=== PATIENT | female | born 1960 | race Caucasian/White ===

== ENCOUNTER 2019-10-09 15:39 | Emergency (ER) | payer OTHER ==
[~2019-10-09] VITALS: Ht 165.1 cm; Wt 109.8 kg
--- NOTE | 2019-10-09 15:49 | NUR ---
Dr Waters at the bedside for MSE.
--- NOTE | 2019-10-09 16:35 | NUR ---
Placed a call to [email or web address] @[phone]. [employer] #[id number], no ETA provided at this time. Pt made aware.
--- NOTE | 2019-10-09 18:59 | NUR ---
Handsoff report given to KARTHIK Gifford production supervisor off shift.
--- NOTE | 2019-10-09 19:15 | NUR ---
Patient discharged to home in stable conditon. Written and verbal after care instructions given. Patient verbalizes understanding of instructions. [facility] patient ambulated to [facility] with stable gait. all belongings with patient
[2019-10-09 19:20] VITALS: BP 124/66
== END 2019-10-09 19:15 | disposition home or self-care (01) ==
LOC: ER 15:47
DX: J22 Unspecified acute lower respiratory infection (principal); R05 Cough; J44.9 Chronic obstructive pulmonary disease, unspecified; E11.9 Type 2 diabetes mellitus without complications
CPT/HCPCS: 71045; A4663

== ENCOUNTER 2019-12-29 21:32 | Emergency (ER) | payer OTHER ==
[~2019-12-29] VITALS: Ht 165.1 cm; Wt 111.1 kg
[2019-12-29] MEDS ORDERED: BACL10TA PO (22:04)
[2019-12-29] MEDS ORDERED: LEVO100T10 PO (22:04)
[2019-12-29] MEDS ORDERED: METF-442 PO (22:04)
[2019-12-29] MEDS ORDERED: OM-31CAP7 PO (22:04)
[2019-12-29] MEDS ORDERED: PANT40TA4 PO (22:04)
[2019-12-29] MEDS ORDERED: ACET-2154 PO (22:04)
[2019-12-29] MEDS ORDERED: FLUT1DIS28 IH (22:04)
[2019-12-29] MEDS ORDERED: [UNRECOGNIZED DRUG - OTHER] (22:04)
[2019-12-29] MEDS ORDERED: CARV3.122 PO (22:04)
[2019-12-29] MEDS ORDERED: ASPI81TA31 PO (22:04)
[2019-12-29] MEDS ORDERED: DIVA125T32 PO (22:04)
[2019-12-29] MEDS ORDERED: DIVA-76 PO (22:04)
[2019-12-29] MEDS ORDERED: CITA40TA22 PO (22:04)
[2019-12-29] MEDS ORDERED: CHOL100045 PO (22:04)
[2019-12-29] MEDS ORDERED: ATOR40TA PO (22:04)
[2019-12-29] MEDS ORDERED: LACT10SO7 PO (22:04)
[2019-12-29] MEDS ORDERED: FURO-152 PO (22:04)
[2019-12-29] MEDS ORDERED: FOLI1TAB16 PO (22:04)
[2019-12-29] MEDS ORDERED: IBUP-1955 PO (22:04)
[2019-12-29] MEDS ORDERED: QUET300T2 PO (22:04)
[2019-12-29] MEDS ORDERED: LOSA100T3 PO (22:04)
[2019-12-29] MEDS ORDERED: DOCU-141 PO (22:04)
[2019-12-29] MEDS ORDERED: METH10TA PO (22:04)
[2019-12-29] MEDS ORDERED: DIVA500T2 PO (22:04)
[2019-12-29] MEDS ORDERED: HYDR50TA62 PO (22:04)
--- NOTE | 2019-12-29 22:06 | NUR ---
Patient BIB private ambulance from [facility] for c/o bilateral hip and back pain due to non witness fall today. Patient upon arrival A/Ox3, c/o genaralized pain and burning upon urination. On via N/C satting at 97%. Dr Quispe into eval patient.
[2019-12-29 22:20] LABS: *BILIRUBIN,URIN NEGATIVE (NEGATIVE); *BLOOD, URINE 2+ (NEGATIVE); *CLARITY,URINE CLOUDY (CLEAR); *COLOR,URINE YELLOW (YELLOW); *KETONES,URINE TRACE (NEGATIVE); *UROBILINOGEN,URINE 0.2 E.U./dl (NORMAL); LEUKOCYTE ESTERASE ,URINE 2+ (NEGATIVE); NITRITE, URINE NEGATIVE (NEGATIVE); PH,URINE 5.5 (5.0-8.0); UGLUCOSE NEGATIVE (NEGATIVE)
[2019-12-29 22:22] LABS: BASOPHILS # (AUTO) 0.1 K/uL (0.0-8.0); BASOPHILS % (AUTO) 1.2 % (0.0-2.0); EOSINOPHILS # (AUTO) 0.2 K/uL (0.0-0.7); EOSINOPHILS % (AUTO) 2.4 % (0.0-7.0); HEMATOCRIT 36.2 % (31.2-41.9); HEMOGLOBIN 12.5 g/dL (10.9-14.3); LYMPHOCYTES # (AUTO) 2.8 K/uL (20.0-40.0); LYMPHOCYTES % (AUTO) 30.7 % (20.5-51.5); MEAN CORPUSCULAR HEMOGLOBIN 33.2 uug (24.7-32.8); MEAN CORPUSCULAR HGB CONC 35 g/dL (32.3-35.6); MEAN CORPUSCULAR VOLUME 95.9 fL (75.5-95.3); MONOCYTES # (AUTO) 0.7 K/uL (2.0-10.0); MONOCYTES % (AUTO) 8.1 % (0.0-11.0); NEUTROPHILS # (AUTO) 5.3 K/uL (1.8-8.9); NEUTROPHILS % (AUTO) 57.6 % (38.5-71.5); PLATELET COUNT (AUTO) 200 K/uL (179-408); RED BLOOD CELL COUNT(AUTO) 3.77 MIL/uL (3.63-4.92); WHITE BLOOD COUNT (AUTO) 9.1 K/uL (3.8-11.8)
[2019-12-29 22:28] LABS: CREATININE 2.2 mg/dL (0.6-1.3); POTASSIUM 3.7 mmol/L (3.5-5.1)
[2019-12-29 22:33] LABS: BILIRUBIN,DIRECT 0.2 mg/dL (0.0-0.2); BILIRUBIN,TOTAL 0.3 mg/dL (0.2-1.0)
--- NOTE | 2019-12-29 22:35 | NUR ---
Patient out of unit for ct scan via g[facility].
[2019-12-29 22:42] LABS: BACTERIA,URINE MANY /HPF (NONE SEEN); SQUAMOUS EPITHELIAL CELL,UR MODERATE /HPF (NONE SEEN); WBC,URINE TNTC /HPF (0-3)
--- NOTE | 2019-12-29 22:46 | NUR ---
Patient back from ct scan with no distress noted.
[2019-12-29] MEDS ORDERED: CEphaleXIN 500 MG CAPSULE PO ONE (23:00)
[2019-12-29] MEDS ORDERED: CEphaleXIN 500 MG CAPSULE ONE (23:11)
--- NOTE | 2019-12-29 23:26 | NUR ---
Called [facility] to transport patient back to [facility]. ETA is 1hr with trip #[id number].
--- NOTE | 2019-12-29 23:59 | NUR ---
Gave report to [facility] unit 121. Called [facility], spoke to Rosaura and inform patient will be returning with Rx for Kelfex.
--- NOTE | 2019-12-30 00:14 | NUR ---
Patient d/c'ed via [facility] with no distress noted.
[2019-12-30 00:15] VITALS: BP 128/66
== END 2019-12-30 00:16 ==
LOC: ER 21:33
DX: N39.0 Urinary tract infection, site not specified (principal); E11.22 Type 2 diabetes mellitus with diabetic chronic kidney disease; N18.9 Chronic kidney disease, unspecified; Z79.84 Long term (current) use of oral hypoglycemic drugs; J44.9 Chronic obstructive pulmonary disease, unspecified; Z87.01 Personal history of pneumonia (recurrent); Z87.898 Personal history of other specified conditions; I51.7 Cardiomegaly
CPT/HCPCS: 36415; 70450; 71045; 83690; 85025; 87077; 87086; 93005; A4663

== ENCOUNTER 2020-01-01 19:14 | Inpatient (IN) | payer OTHER ==
[~2020-01-01] VITALS: Ht 165.1 cm; Wt 111.6 kg
[~2020-01-01 19:14] MED LIST: ACET-2154 PO; ASPI81TA31 PO; ATOR40TA PO; BACL10TA PO; CARV3.122 PO; CHOL100045 PO; CITA40TA22 PO; DIVA-76 PO; DIVA125T32 PO; DIVA500T2 PO; DOCU-141 PO; FLUT1DIS28 IH; FOLI1TAB16 PO; FURO-152 PO; HYDR50TA62 PO; IBUP-1955 PO; LACT10SO7 PO; LEVO100T10 PO; LOSA100T3 PO; METF-442 PO; METH10TA PO; OM-31CAP7 PO; PANT40TA4 PO; QUET300T2 PO; [UNRECOGNIZED DRUG - OTHER]
[2020-01-01] MEDS ORDERED: OXYC-133 PO (19:40)
[2020-01-01] MEDS ORDERED: CEPH-570 PO (19:40)
[2020-01-01 20:28] LABS: *BILIRUBIN,URIN NEGATIVE (NEGATIVE); *COLOR,URINE YELLOW (YELLOW); *KETONES,URINE NEGATIVE (NEGATIVE); *UROBILINOGEN,URINE 0.2 E.U./dl (NORMAL); LEUKOCYTE ESTERASE ,URINE 1+ (NEGATIVE); NITRITE, URINE NEGATIVE (NEGATIVE); PH,URINE 5.5 (5.0-8.0); UGLUCOSE NEGATIVE (NEGATIVE)
[2020-01-01 20:33] LABS: *BLOOD, URINE TRACE (NEGATIVE); *CLARITY,URINE HAZY (CLEAR)
[2020-01-01 20:35] LABS: BACTERIA,URINE FEW /HPF (NONE SEEN); MUCUS,URINE FEW /LPF (0-FEW); SQUAMOUS EPITHELIAL CELL,UR MODERATE /HPF (NONE SEEN)
--- NOTE | 2020-01-01 20:47 | NUR ---
Dr. Quispe speaking with Dr. Nishant Albright of [facility].
--- NOTE | 2020-01-01 20:54 | NUR ---
Pt. admitted to Med/Surg, under care of Dr. Nishant Albright . Diagnosis: UTI/Left Fibula Fracture. Belongs List completed.
[2020-01-01] MEDS ORDERED: SULFAMETH/TRIMETH 800/160 MG TABLET PO ONE (21:00)
[2020-01-01] MEDS ORDERED: IV NORMAL SALINE 1000 ML BAG IV ONE ×2 (21:00→22:45)
[2020-01-01] MEDS ORDERED: SULFAMETH/TRIMETH 800/160 MG TABLET ONE (21:19)
[2020-01-01 21:23] LABS: BASOPHILS % (AUTO) 0.6 % (0.0-2.0); EOSINOPHILS # (AUTO) 0.1 K/uL (0.0-0.7); EOSINOPHILS % (AUTO) 1.9 % (0.0-7.0); HEMATOCRIT 30.4 % (31.2-41.9); HEMOGLOBIN 10.4 g/dL (10.9-14.3); LYMPHOCYTES # (AUTO) 1.5 K/uL (20.0-40.0); LYMPHOCYTES % (AUTO) 23.2 % (20.5-51.5); MEAN CORPUSCULAR HEMOGLOBIN 33.2 uug (24.7-32.8); MEAN CORPUSCULAR HGB CONC 34 g/dL (32.3-35.6); MEAN CORPUSCULAR VOLUME 97.1 fL (75.5-95.3); MONOCYTES # (AUTO) 0.9 K/uL (2.0-10.0); MONOCYTES % (AUTO) 13.3 % (0.0-11.0); NEUTROPHILS # (AUTO) 3.9 K/uL (1.8-8.9); PLATELET COUNT (AUTO) 169 K/uL (179-408); RED BLOOD CELL COUNT(AUTO) 3.13 MIL/uL (3.63-4.92); WHITE BLOOD COUNT (AUTO) 6.4 K/uL (3.8-11.8)
[2020-01-01 21:28] LABS: POTASSIUM 4.7 mmol/L (3.5-5.1)
[2020-01-01 21:33] LABS: BILIRUBIN,DIRECT 0.1 mg/dL (0.0-0.2); BILIRUBIN,TOTAL 0.2 mg/dL (0.2-1.0); TOTAL PROTEIN, SERUM 6.1 g/dL (6.4-8.2)
[2020-01-01 22:35] VITALS: BP 125/46
--- NOTE | 2020-01-01 23:00 | NUR ---
Patient admitted at 2228 from [facility] with diagnosis of UTI/Left Fibula Fracture, transferred from ED via gurney. Patient is alert, oriented x 2-3, vital signs stable, denies any jovel or discomfort at this time. Skin is intact. Picture taken on left hip bruising, and peritoneal redness on left side. Routine admission care done. PM care done, patient is incontinent. Oriented patient to staff, room and use of room amenities/functions with verbalized understanding. Patient is under care of Dr. Nishant Albright. Physical assessment completed. Belongs List completed. Will continue to monitor.
[2020-01-01] MEDS ORDERED: CEFTRIAXONE /D5W 50ML IVPB **ER PYXIS IV ONE (23:53)
[2020-01-02] MEDS: CEFTRIAXONE 1 G in IV DEXTROSE 5% 50 ML IV SCH (00:51)
--- NOTE | 2020-01-02 02:00 | NUR ---
Administered Rocephin, no adverse affects noted. Iv site is on right forearm, 22G, intact and patent. Patients is on 2L NC saturating at 98%. Blood pressure fluctuating 70/38, 90/58, 97/64. Put patient in Trendelenburg position BP at 98/70. Patient is asymptomatic, Will continue to monitor.
[2020-01-02 04:00] VITALS: BP 108/47
--- NOTE | 2020-01-02 05:13 | NUR ---
No sudden events reported. Patient woke up startled thinking that her blood pressure was dropping and that the clock was measure her blood pressure. Patient reoriented and calm. BP 156/125, repeated 116/35. Recent vitals 108/47 no temp, saturating at 97% on 2L, no complaints and remains asymptomatic. Gave patient pudding. Patient keeps falling asleep, will follow up with history of narcolepsy.
--- NOTE | 2020-01-02 07:45 | NUR ---
Patient in bed, awake and verbally responsive. On Oxygen at 2L via nasal canula, saturating 96%. No complain of Pain or discomfort. Kpet clean and comfortable. Kept the call light within easy reach. Will continue to monitor.
[2020-01-02] MEDS ORDERED: ACETAMINOPHEN 325 MG TABLET PO PRN ×2 (08:45→10:11)
[2020-01-02] MEDS ORDERED: ADMELOG XX SCH (08:45)
[2020-01-02] MEDS ORDERED: METFORMIN HCL 500 MG TABLET PO SCH (08:45)
[2020-01-02] MEDS ORDERED: IBUPROFEN 600 MG TABLET PO PRN (08:45)
[2020-01-02] MEDS: LOSARTAN POTASSIUM 50 MG TABLET PO SCH (09:00)
[2020-01-02] MEDS: CARVEDILOL 3.125 MG TABLET PO SCH ×2 (09:00→17:00)
[2020-01-02] MEDS ORDERED: FLUTICASONE/SALMETEROL 250/50 INHALER IH SCH (09:00)
[2020-01-02] MEDS ORDERED: FUROSEMIDE 20 MG TABLET PO SCH (09:00)
[2020-01-02] MEDS ORDERED: VITAMIN D PO SCH (09:00)
[2020-01-02] MEDS ORDERED: FISH OIL PO SCH (09:00)
[2020-01-02] MEDS: DOCUSATE SODIUM 100 MG CAPSULE PO SCH (09:26)
[2020-01-02] MEDS: CHOLECALCIFEROL 1,000 UNIT TABLET PO SCH (09:26)
[2020-01-02] MEDS: FOLIC ACID 1 MG TABLET PO SCH (09:27)
[2020-01-02] MEDS: ASPIRIN 81 MG TAB.CHEW PO SCH (09:27)
[2020-01-02] MEDS: DIVALPROEX 125 MG TABLET.DR PO SCH (09:27)
[2020-01-02] MEDS: CITALOPRAM 20 MG TABLET PO SCH (09:27)
[2020-01-02] MEDS: BACLOFEN 10 MG TABLET PO SCH ×2 (09:28→16:34)
[2020-01-02] MEDS: Z GUARD REMEDY PASTE 57 GM TUBE TOP SCH ×2 (09:28→20:49)
[2020-01-02] MEDS: PANTOPRAZOLE SODIUM 40 MG TABLET.DR PO SCH (09:36)
[2020-01-02] MEDS: LEVOTHYROXINE SODIUM 100 MCG TABLET PO SCH (11:07)
[2020-01-02] MEDS: FLUTICASONE/VILANTEROL 1 EACH BLST.W.DEV INH SCH (11:25)
[2020-01-02] MEDS ORDERED: DEXTROSE 50% 50 ML DISP.SYRIN IV PRN (11:30)
[2020-01-02] MEDS: BLOOD SUGAR DIAGNOSTIC 1 EACH STRIP VI SCH ×3 (11:41→20:30)
[2020-01-02] MEDS: IV NS 1000 ML 1,000 ML IV PRN (11:48)
[2020-01-02] MEDS: INSULIN REGULAR, HUMAN 300 UNIT/3 ML VIAL SQ PRN ×2 (12:31→20:45)
[2020-01-02 13:45] VITALS: BP 118/90
[2020-01-02] MEDS: OXYCODONE/APAP 5-325 MG TABLET PO PRN ×2 (15:06→20:19)
[2020-01-02] MEDS: DIVALPROEX 250 MG TABLET.DR PO SCH (16:34)
--- NOTE | 2020-01-02 18:23 | NUR ---
Patient in bed, awake and verbally responsive. On Oxygen at 2L via nasal canula, saturating 96%. Afebrile. Pain medication Percocet 5/325mg given as ordered for Generalized Body pain. IVF infusing well on LFA, All needs attended and met. kept clean and comfortable. Will endorse to Oncoming Nurse.
--- NOTE | 2020-01-02 19:30 | NUR ---
PATIENT ALERT BUT FORGETFUL, NO SOB NO CHEST PAIN, PATIENT CONTINUE ON PAIN MANAGEMENT DUE TO FX OF LEFT FIBULA. PATIENT WAS KEPT CLEAN AND DRY AND COMFORTABLE, CONT TO MONITOR.
[2020-01-02 20:19] VITALS: BP 117/98
[2020-01-02] MEDS: hydrOXYzine HCL 25 MG TABLET PO SCH (20:48)
[2020-01-02] MEDS: DIVALPROEX 500 MG TABLET.DR PO SCH (20:48)
[2020-01-02] MEDS: ATORVASTATIN 40 MG TABLET PO SCH (20:49)
[2020-01-02] MEDS: QUETIAPINE FUMARATE 200 MG TABLET PO SCH (20:49)
[2020-01-03] MEDS: CEFTRIAXONE 1 G in IV DEXTROSE 5% 50 ML IV SCH ×2 (00:08→22:57)
[2020-01-03] MEDS: OXYCODONE/APAP 5-325 MG TABLET PO PRN ×5 (00:37→22:42)
[2020-01-03] MEDS: IV NS 1000 ML 1,000 ML IV PRN ×3 (00:37→23:40)
[2020-01-03 05:23] VITALS: BP 112/53
[2020-01-03] MEDS: PANTOPRAZOLE SODIUM 40 MG TABLET.DR PO SCH (06:21)
[2020-01-03] MEDS: LEVOTHYROXINE SODIUM 100 MCG TABLET PO SCH (06:23)
[2020-01-03] MEDS: BLOOD SUGAR DIAGNOSTIC 1 EACH STRIP VI SCH ×4 (06:23→20:31)
--- NOTE | 2020-01-03 07:30 | NUR ---
RECEIVED IN BED ASLEEP EASILY AROUSABLE ON ROUNDS ASSISTED WITH REPOSITIONING Q2H REMAIN ON IVF ORDERED WITH NO S/S OF INFILTERATION ON SITE ON O2 WITH NO SHORTNESS OF BREATH AT THIS TIME NO S/S OF HYPOGLYCEMIC REACTIONS ALL NEEDS ANTICIPATED AND SATISFIED MADE COMFORTABLE
[2020-01-03] MEDS: DIVALPROEX 125 MG TABLET.DR PO SCH (09:09)
[2020-01-03] MEDS: FOLIC ACID 1 MG TABLET PO SCH (09:09)
[2020-01-03] MEDS: BACLOFEN 10 MG TABLET PO SCH ×2 (09:09→16:53)
[2020-01-03] MEDS: DOCUSATE SODIUM 100 MG CAPSULE PO SCH (09:09)
[2020-01-03] MEDS: CHOLECALCIFEROL 1,000 UNIT TABLET PO SCH (09:09)
[2020-01-03] MEDS: CITALOPRAM 20 MG TABLET PO SCH (09:09)
[2020-01-03] MEDS: ASPIRIN 81 MG TAB.CHEW PO SCH (09:09)
[2020-01-03] MEDS: OMEGA-3 FATTY ACIDS/FISH OIL CAPSULE PO SCH (09:09)
[2020-01-03] MEDS: LOSARTAN POTASSIUM 50 MG TABLET PO SCH (09:10)
[2020-01-03] MEDS: FLUTICASONE/VILANTEROL 1 EACH BLST.W.DEV INH SCH (09:10)
[2020-01-03] MEDS: CARVEDILOL 3.125 MG TABLET PO SCH ×2 (09:11→16:54)
[2020-01-03] MEDS: Z GUARD REMEDY PASTE 57 GM TUBE TOP SCH ×2 (09:15→20:47)
--- NOTE | 2020-01-03 09:40 | NUR ---
PATIENT STATED HAVING PAIN IN HER LEFT LEG MEDICATED WITH PERCOCET ORDERED MADE COMFORTABLE CIRCULATION REMAIN ADEQUATE AT THIS TIME
[2020-01-03 12:01] VITALS: BP 122/57
--- NOTE | 2020-01-03 12:08 | NUR ---
PATIENT SEEN AND EXAMINED BY DR ARVIZU WITH NEW ORDERS AND NOTED
--- NOTE | 2020-01-03 12:22 | NUR ---
PATIENT SEEN AND EXAMINED BY DR WYMAN WITH NEW ORDERS AN NOTED
[2020-01-03 16:00] VITALS: BP 115/79
[2020-01-03] MEDS: DIVALPROEX 250 MG TABLET.DR PO SCH (16:53)
--- NOTE | 2020-01-03 17:45 | NUR ---
REQUESTING FOR PAIN MEDICATIONS GIVEN ORDERED AND HELPFUL LEFT LEG WITH IMMOBILIZER WITH ADEQUATE CIRCULATION MADE COMFORTABLE WILL CONTINUE TO OBSERVE
--- NOTE | 2020-01-03 19:00 | NUR ---
PATIENT ALERT BUT FORGETFUL, NO SOB NO CHEST PAIN. PATIENT ON TELE MONITOR SINUS RHYTHM AT THIS TIME. PATIENT CONT ON PAIN MANAGEMENT DUE L FIBULA FX, PATIENT KEPT CLEAN AND DRY. CALL LIGHT WITHIN REACH.
[2020-01-03] MEDS: ATORVASTATIN 40 MG TABLET PO SCH (20:29)
[2020-01-03] MEDS: DIVALPROEX 500 MG TABLET.DR PO SCH (20:29)
[2020-01-03] MEDS: QUETIAPINE FUMARATE 200 MG TABLET PO SCH (20:29)
[2020-01-03] MEDS: hydrOXYzine HCL 25 MG TABLET PO SCH (20:30)
[2020-01-03] MEDS: INSULIN REGULAR, HUMAN 300 UNIT/3 ML VIAL SQ PRN (20:38)
[2020-01-03 20:46] VITALS: BP 129/57
--- NOTE | 2020-01-03 22:30 | NUR ---
PATIENT POSITIVE FOR MRSA OF MD COCO NOTIFIED. NNO, PATIENT ON BACTROBAN ORDERED.
[2020-01-04 01:18] VITALS: BP 102/54
[2020-01-04 05:22] VITALS: BP 119/59
[2020-01-04] MEDS: LEVOTHYROXINE SODIUM 100 MCG TABLET PO SCH (05:40)
[2020-01-04] MEDS: PANTOPRAZOLE SODIUM 40 MG TABLET.DR PO SCH (05:40)
[2020-01-04] MEDS: BLOOD SUGAR DIAGNOSTIC 1 EACH STRIP VI SCH ×4 (05:41→20:44)
--- NOTE | 2020-01-04 06:05 | NUR ---
PATIENT SLEPT MOST OF THE NIGHT, NO SOB NO CHEST PAIN. PATIENT OXYGEN SAT WNL, CONT ON PAIN MANAGEMENT OF LEFT FIBULA. PATIENT KEPT CLEAN AND DRY, CALL LIGHT WITHIN REACH, TELE MONITOR SINUS RYTHYM.
[2020-01-04] MEDS: OXYCODONE/APAP 5-325 MG TABLET PO PRN ×3 (06:23→20:45)
[2020-01-04 07:02] LABS: CREATININE 0.9 mg/dL (0.6-1.3); PHOSPHOROUS 2.4 mg/dL (2.5-4.9); POTASSIUM 4.7 mmol/L (3.5-5.1)
[2020-01-04 07:16] LABS: MAGNESIUM 1.1 mg/dL (1.8-2.4)
--- NOTE | 2020-01-04 07:20 | NUR ---
RECEIVED PATIENT IN BED ASLEEP EASILY AROUSABLE ON ROUNDS STATED COMFORTABLE WAS GIVEN PAIN MEDICATIONS WHICH IS EFFECTIVE ON O2 WITH NO S/S OF SHORTNESS OF BREATH AT THIS TIME.CALL LIGHTS AND PERSONAL BELONGINGS ARE WITHIN EASY REACH AT THIS TIME WILL CONTINUE TO OBSERVE AND PROVIDE COMFORT.
--- NOTE | 2020-01-04 07:36 | NUR ---
PATIENT MG LEVEL 1.1 CALL MD LEFT MESSSAGE TO EXCHANGE, ENDORSED TO NEXT SHIFT.
[2020-01-04 07:48] LABS: BASOPHILS % (AUTO) 0.3 % (0.0-2.0); EOSINOPHILS # (AUTO) 0.1 K/uL (0.0-0.7); EOSINOPHILS % (AUTO) 2.3 % (0.0-7.0); HEMATOCRIT 32.9 % (31.2-41.9); HEMOGLOBIN 11.3 g/dL (10.9-14.3); LYMPHOCYTES # (AUTO) 1.7 K/uL (20.0-40.0); LYMPHOCYTES % (AUTO) 28.9 % (20.5-51.5); MEAN CORPUSCULAR HEMOGLOBIN 33.4 uug (24.7-32.8); MEAN CORPUSCULAR HGB CONC 34 g/dL (32.3-35.6); MEAN CORPUSCULAR VOLUME 97.3 fL (75.5-95.3); NEUTROPHILS % (AUTO) 51.5 % (38.5-71.5); PLATELET COUNT (AUTO) 155 K/uL (179-408); RED BLOOD CELL COUNT(AUTO) 3.38 MIL/uL (3.63-4.92); WHITE BLOOD COUNT (AUTO) 5.8 K/uL (3.8-11.8)
[2020-01-04 09:03] LABS: BAND % (MANUAL) 2 % (0-10); EOSINOPHILS % (MANUAL) 4 % (0-8); LYMPHOCYTES % (MANUAL) 29 % (20-40); MONOCYTES % (MANUAL) 15 % (2-10); NEUTROPHILS % (MANUAL) 50 % (42-75)
[2020-01-04] MEDS: CHOLECALCIFEROL 1,000 UNIT TABLET PO SCH (09:03)
[2020-01-04] MEDS: DOCUSATE SODIUM 100 MG CAPSULE PO SCH (09:03)
[2020-01-04] MEDS: CITALOPRAM 20 MG TABLET PO SCH (09:04)
[2020-01-04] MEDS: FOLIC ACID 1 MG TABLET PO SCH (09:04)
[2020-01-04] MEDS: ASPIRIN 81 MG TAB.CHEW PO SCH (09:04)
[2020-01-04] MEDS: DIVALPROEX 125 MG TABLET.DR PO SCH (09:04)
[2020-01-04] MEDS: OMEGA-3 FATTY ACIDS/FISH OIL CAPSULE PO SCH (09:04)
[2020-01-04] MEDS: CARVEDILOL 3.125 MG TABLET PO SCH ×2 (09:07→16:33)
[2020-01-04] MEDS: BACLOFEN 10 MG TABLET PO SCH ×2 (09:11→16:33)
[2020-01-04] MEDS: MUPIROCIN 2% OINT 22 GM TUBE NS SCH ×2 (09:12→20:57)
[2020-01-04] MEDS: Z GUARD REMEDY PASTE 57 GM TUBE TOP SCH ×2 (09:12→20:45)
[2020-01-04] MEDS: FLUTICASONE/VILANTEROL 1 EACH BLST.W.DEV INH SCH (09:15)
[2020-01-04] MEDS: LACTULOSE 20 G/30 ML LIQUID UDC PO PRN (09:23)
--- NOTE | 2020-01-04 11:03 | NUR ---
PATIENT C/O FEELS NAUSEA SHE HAS NO ORDER FOR ANTIEMETIC CALLED THE [facility] SPOKE WITH DAVID MESSAGE LEFT FOR DR ABBOTT TO RETURN CALL.
[2020-01-04] MEDS: IV NS 1000 ML 1,000 ML IV PRN (11:35)
[2020-01-04] MEDS ORDERED: NEUTRA PHOS PACKET PO ONE (12:00)
[2020-01-04] MEDS: INSULIN REGULAR, HUMAN 300 UNIT/3 ML VIAL SQ PRN ×3 (12:29→20:49)
[2020-01-04] MEDS: IV 1/2NS 1000 ML 1,000 ML IV PRN (12:36)
[2020-01-04] MEDS: ONDANSETRON 4 MG/2 ML VIAL IV PRN ×2 (12:36→20:52)
--- NOTE | 2020-01-04 12:40 | NUR ---
DR ARVIZU HERE SEEN PATIENT WITH NEW ORDERS AND NOTED
[2020-01-04 13:40] VITALS: BP 141/71
[2020-01-04] MEDS: MAGNESIUM SULFATE/D5W 100 ML IV SCH ×4 (13:45→16:57)
--- NOTE | 2020-01-04 14:30 | NUR ---
PATIENT C/O HAVING PAIN MEDICATED WITH PERCOCET ORDERED MADE COMFORTABLE AND WILL CONTINUE TO OBSERVE.
[2020-01-04] MEDS: DIVALPROEX 250 MG TABLET.DR PO SCH (16:33)
[2020-01-04 16:40] VITALS: BP 117/96
--- NOTE | 2020-01-04 17:47 | NUR ---
MG LEVEL WAS 1.[address] TODAY [address] ORDERS FROM DR ARVIZU LAST BAG OF MAG SULFATE IS INFUSING AT THIS TIME TOLERATED WELL.
--- NOTE | 2020-01-04 19:30 | NUR ---
RECEIVED PT ALERT, AWAKE AND ORIENTEDX3. PT IN NO ACUTE RESPIRATORY DISTRESS. IV INTACT. SAFETY AND COMFORT PROVIDED. WILL CONTINUE TO MONITOR.
[2020-01-04] MEDS: hydrOXYzine HCL 25 MG TABLET PO SCH (20:43)
[2020-01-04] MEDS: DIVALPROEX 500 MG TABLET.DR PO SCH (20:43)
[2020-01-04] MEDS: QUETIAPINE FUMARATE 200 MG TABLET PO SCH (20:44)
[2020-01-04] MEDS: ATORVASTATIN 40 MG TABLET PO SCH (20:44)
[2020-01-04 21:04] VITALS: BP 122/86
[2020-01-04] MEDS: CEFTRIAXONE 1 G in IV DEXTROSE 5% 50 ML IV SCH (23:17)
[2020-01-05 05:44] VITALS: BP 119/58
[2020-01-05] MEDS: OXYCODONE/APAP 5-325 MG TABLET PO PRN ×4 (05:55→22:22)
[2020-01-05] MEDS: PANTOPRAZOLE SODIUM 40 MG TABLET.DR PO SCH (06:15)
[2020-01-05] MEDS: LEVOTHYROXINE SODIUM 100 MCG TABLET PO SCH (06:16)
--- NOTE | 2020-01-05 06:25 | NUR ---
PT IN NO ACUTE RESPIRATORY DISTRESS. IV INTACT. PERCOCET GIVEN AT 2045H and 0555h. PT TOLERATED IT WELL. PRESCRIBED MEDICATION GIVEN AND PT TOLERATED IT WELL. SAFETY AND COMFORT PROVIDED. ALL NEEDS ARE MET.WILL ENDORSE TO INCOMING NURSE FOR CONTINUITY OF CARE.
[2020-01-05] MEDS: BLOOD SUGAR DIAGNOSTIC 1 EACH STRIP VI SCH ×5 (06:31→20:53)
[2020-01-05 07:17] LABS: BASOPHILS % (AUTO) 0.2 % (0.0-2.0); EOSINOPHILS # (AUTO) 0.1 K/uL (0.0-0.7); EOSINOPHILS % (AUTO) 1.7 % (0.0-7.0); HEMATOCRIT 32.5 % (31.2-41.9); HEMOGLOBIN 11.1 g/dL (10.9-14.3); LYMPHOCYTES # (AUTO) 1.7 K/uL (20.0-40.0); LYMPHOCYTES % (AUTO) 21.9 % (20.5-51.5); MEAN CORPUSCULAR HGB CONC 34 g/dL (32.3-35.6); MEAN CORPUSCULAR VOLUME 96.7 fL (75.5-95.3); MONOCYTES # (AUTO) 1.2 K/uL (2.0-10.0); MONOCYTES % (AUTO) 14.7 % (0.0-11.0); NEUTROPHILS # (AUTO) 4.9 K/uL (1.8-8.9); NEUTROPHILS % (AUTO) 61.5 % (38.5-71.5); PLATELET COUNT (AUTO) 178 K/uL (179-408); RED BLOOD CELL COUNT(AUTO) 3.36 MIL/uL (3.63-4.92)
--- NOTE | 2020-01-05 07:37 | NUR ---
RECEIVED PATIENT ASLEEP BUT EASILY AROUSABLE ON ROUNDS NO S/S OF PAIN OR DISCOMFORTS AT THIS TIME.REMAIN ON IVF ORDERED WITH NO S/S OF INFILTERATION ON SITE ON O2 WITH ADEQUATE SATS CALL LIGHTS AND PERSONAL BELONGINGS ARE WITHIN EASY REACH AT THIS TIME MADE COMFORTABLE WILL CONTINUE TO OBSERVE.
[2020-01-05 07:50] LABS: MAGNESIUM 1.4 mg/dL (1.8-2.4); PHOSPHOROUS 2.3 mg/dL (2.5-4.9); POTASSIUM 4.1 mmol/L (3.5-5.1)
[2020-01-05 08:33] LABS: WHITE BLOOD COUNT (AUTO) 7.9 K/uL (3.8-11.8)
[2020-01-05] MEDS: ASPIRIN 81 MG TAB.CHEW PO SCH (08:39)
[2020-01-05] MEDS: CHOLECALCIFEROL 1,000 UNIT TABLET PO SCH (08:39)
[2020-01-05] MEDS: FOLIC ACID 1 MG TABLET PO SCH (08:39)
[2020-01-05] MEDS: CITALOPRAM 20 MG TABLET PO SCH (08:39)
[2020-01-05] MEDS: LACTULOSE 20 G/30 ML LIQUID UDC PO PRN ×2 (08:39→22:27)
[2020-01-05] MEDS: BACLOFEN 10 MG TABLET PO SCH ×2 (08:39→17:34)
[2020-01-05] MEDS: DOCUSATE SODIUM 100 MG CAPSULE PO SCH (08:39)
[2020-01-05] MEDS: OMEGA-3 FATTY ACIDS/FISH OIL CAPSULE PO SCH (08:40)
[2020-01-05] MEDS: CARVEDILOL 3.125 MG TABLET PO SCH ×2 (08:40→17:35)
[2020-01-05] MEDS: DIVALPROEX 125 MG TABLET.DR PO SCH (08:40)
[2020-01-05] MEDS: Z GUARD REMEDY PASTE 57 GM TUBE TOP SCH ×2 (08:44→20:38)
[2020-01-05] MEDS: MUPIROCIN 2% OINT 22 GM TUBE NS SCH ×2 (08:45→20:41)
[2020-01-05] MEDS: FLUTICASONE/VILANTEROL 1 EACH BLST.W.DEV INH SCH (11:00)
[2020-01-05 12:00] VITALS: BP 116/77
[2020-01-05] MEDS ORDERED: NEUTRA PHOS PACKET PO ONE (12:30)
--- NOTE | 2020-01-05 12:30 | NUR ---
DR SCHULTE HERE TO SEE PATIENT AWARE OF MAG LEVEL AT 1.4 AND PHOS LEVEL OF 2.3 WITH NEW ORDERS AND NOTED.
[2020-01-05] MEDS: INSULIN REGULAR, HUMAN 300 UNIT/3 ML VIAL SQ PRN ×2 (12:34→20:58)
[2020-01-05] MEDS: MAGNESIUM SULFATE/D5W 100 ML IV SCH ×2 (12:35→13:37)
--- NOTE | 2020-01-05 13:23 | NUR ---
PATIENT C/O LEFT LEG PAIN MEDICATED WITH PERCOCET ORDERED MADE COMFORTABLE.
[2020-01-05 16:00] VITALS: BP 111/55
[2020-01-05] MEDS: DIVALPROEX 250 MG TABLET.DR PO SCH (17:34)
[2020-01-05] MEDS: IV 1/2NS 1000 ML 1,000 ML IV PRN (17:36)
--- NOTE | 2020-01-05 18:00 | NUR ---
RESTING IN BED COMFORTABLE WITH IVF IN PROGRESS ORDERED MADE COMFORTABLE WILL CONTINUE TO OBSERVE AND PROVIDE COMFORT.
[2020-01-05 20:00] VITALS: BP 136/75
--- NOTE | 2020-01-05 20:00 | NUR ---
RECEIVED PATIENT AWAKE IN BED. A/O X3. VSS. NO C/O PAIN AT THIS TIME. NO RESP. DISTRESS NOTED. IVF INFUSING WELL TO LEFT FA. CALL LIGHT IN REACH. ALL NEEDS ATTENDED. WILL CONTINUE TO MONITOR.
[2020-01-05] MEDS: ATORVASTATIN 40 MG TABLET PO SCH (20:36)
[2020-01-05] MEDS: DIVALPROEX 500 MG TABLET.DR PO SCH (20:36)
[2020-01-05] MEDS: QUETIAPINE FUMARATE 200 MG TABLET PO SCH (20:36)
[2020-01-05] MEDS: hydrOXYzine HCL 25 MG TABLET PO SCH (20:38)
[2020-01-05] MEDS: CEFTRIAXONE 1 G in IV DEXTROSE 5% 50 ML IV SCH (23:38)
[2020-01-06 04:00] VITALS: BP 142/89
[2020-01-06] MEDS: OXYCODONE/APAP 5-325 MG TABLET PO PRN ×5 (05:10→21:31)
[2020-01-06] MEDS: PANTOPRAZOLE SODIUM 40 MG TABLET.DR PO SCH (06:11)
[2020-01-06] MEDS: LEVOTHYROXINE SODIUM 100 MCG TABLET PO SCH (06:12)
[2020-01-06 06:29] LABS: BASOPHILS % (AUTO) 0.5 % (0.0-2.0); EOSINOPHILS # (AUTO) 0.2 K/uL (0.0-0.7); HEMATOCRIT 30.4 % (31.2-41.9); HEMOGLOBIN 10.5 g/dL (10.9-14.3); LYMPHOCYTES # (AUTO) 2.3 K/uL (20.0-40.0); LYMPHOCYTES % (AUTO) 28.5 % (20.5-51.5); MEAN CORPUSCULAR HEMOGLOBIN 33.3 uug (24.7-32.8); MEAN CORPUSCULAR HGB CONC 34 g/dL (32.3-35.6); MEAN CORPUSCULAR VOLUME 97.1 fL (75.5-95.3); MONOCYTES # (AUTO) 1.2 K/uL (2.0-10.0); NEUTROPHILS # (AUTO) 4.3 K/uL (1.8-8.9); PLATELET COUNT (AUTO) 172 K/uL (179-408); RED BLOOD CELL COUNT(AUTO) 3.14 MIL/uL (3.63-4.92); WHITE BLOOD COUNT (AUTO) 7.9 K/uL (3.8-11.8)
[2020-01-06] MEDS: BLOOD SUGAR DIAGNOSTIC 1 EACH STRIP VI SCH ×4 (06:36→21:34)
[2020-01-06 08:01] LABS: MAGNESIUM 1.6 mg/dL (1.8-2.4); PHOSPHOROUS 2.3 mg/dL (2.5-4.9); POTASSIUM 4.8 mmol/L (3.5-5.1)
[2020-01-06] MEDS: ASPIRIN 81 MG TAB.CHEW PO SCH (08:29)
[2020-01-06] MEDS: CHOLECALCIFEROL 1,000 UNIT TABLET PO SCH (08:29)
[2020-01-06] MEDS: FOLIC ACID 1 MG TABLET PO SCH (08:29)
[2020-01-06] MEDS: OMEGA-3 FATTY ACIDS/FISH OIL CAPSULE PO SCH (08:29)
[2020-01-06] MEDS: BACLOFEN 10 MG TABLET PO SCH ×2 (08:30→16:16)
[2020-01-06] MEDS: DOCUSATE SODIUM 100 MG CAPSULE PO SCH (08:30)
[2020-01-06] MEDS: DIVALPROEX 125 MG TABLET.DR PO SCH (08:30)
[2020-01-06] MEDS: CITALOPRAM 20 MG TABLET PO SCH (08:30)
[2020-01-06] MEDS: Z GUARD REMEDY PASTE 57 GM TUBE TOP SCH ×2 (08:31→20:26)
[2020-01-06] MEDS: CARVEDILOL 3.125 MG TABLET PO SCH ×2 (08:31→16:16)
[2020-01-06] MEDS: FLUTICASONE/VILANTEROL 1 EACH BLST.W.DEV INH SCH (08:32)
[2020-01-06] MEDS: MUPIROCIN 2% OINT 22 GM TUBE NS SCH ×2 (08:32→20:31)
[2020-01-06 08:54] LABS: EOSINOPHILS % (MANUAL) 1 % (0-8); LYMPHOCYTES % (MANUAL) 33 % (20-40); MONOCYTES % (MANUAL) 13 % (2-10); NEUTROPHILS % (MANUAL) 53 % (42-75)
[2020-01-06] MEDS: ONDANSETRON 4 MG/2 ML VIAL IV PRN (09:11)
[2020-01-06] MEDS: MAGNESIUM SULFATE/D5W 100 ML IV SCH ×3 (11:14→13:23)
[2020-01-06] MEDS: INSULIN REGULAR, HUMAN 300 UNIT/3 ML VIAL SQ PRN ×3 (11:25→21:49)
[2020-01-06 11:30] VITALS: BP 104/66
[2020-01-06] MEDS ORDERED: NEUTRA PHOS PACKET PO ONE (15:30)
[2020-01-06 16:09] VITALS: BP 103/54
[2020-01-06] MEDS: DIVALPROEX 250 MG TABLET.DR PO SCH (16:16)
--- NOTE | 2020-01-06 17:13 | NUR ---
PATIENT IS ALERT, ORIENTED X3, NO SOB, RESP EVEN NONLABORD,SKIN WARM AND DRY TO TOUCH, NO DISTRESS NOTED, SPOKE TO DAUGHTER IN LENGTH, QUESTIONS ANSWERED, DR CAGE IS HERE FOR EXAMINE THE PATIENT
--- NOTE | 2020-01-06 17:45 | NUR ---
ANKLE XRAY ORDERED ORDERED BY DR CAGE
--- NOTE | 2020-01-06 17:58 | NUR ---
SPOKE TO SISTER AND UPDATED WITH PATIENT CONDITION
--- NOTE | 2020-01-06 19:00 | NUR ---
PATIENT ALERT ORIENTED, NO SOB NO CHEST PAIN, CONT ON PAIN MANAGEMENT DUE LEFT FIBULA FX, AND POSSIBLE L ANKLE. PATIENT WAS KEPT CLEAN AND DRY, CALL LIGHT WITHIN REACH.
--- NOTE | 2020-01-06 19:30 | NUR ---
PATIENT WAS ASKED WHEN THE LAST TIME SHE BM, AND SHE STATED THAT SHE HAD ONE YESTERDAY.
[2020-01-06 20:00] VITALS: BP 126/73
[2020-01-06] MEDS: ATORVASTATIN 40 MG TABLET PO SCH (20:23)
[2020-01-06] MEDS: QUETIAPINE FUMARATE 200 MG TABLET PO SCH (20:23)
[2020-01-06] MEDS: DIVALPROEX 500 MG TABLET.DR PO SCH (20:23)
[2020-01-06] MEDS: hydrOXYzine HCL 25 MG TABLET PO SCH (20:29)
[2020-01-07] MEDS: OXYCODONE/APAP 5-325 MG TABLET PO PRN ×5 (03:46→22:03)
[2020-01-07 04:00] VITALS: BP 117/68
[2020-01-07] MEDS: PANTOPRAZOLE SODIUM 40 MG TABLET.DR PO SCH (06:06)
[2020-01-07] MEDS: LEVOTHYROXINE SODIUM 100 MCG TABLET PO SCH (06:09)
[2020-01-07] MEDS: BLOOD SUGAR DIAGNOSTIC 1 EACH STRIP VI SCH ×4 (06:09→20:46)
--- NOTE | 2020-01-07 06:15 | NUR ---
PATIENT SLEPT MOST OF THE NIGHT, NO SOB NO CHEST PAIN NOTED. PATIENT CONTINUE ON PAIN MANAGEMENT DUE TO FX OF L FIBULA, WITH EFFECTIVE RESULTS. PATIENT WAS KEPT CLEAN AND DRY. PATIENT SATURATING 98 TO 100 ON ROOM AIR. PATIENT RASHES UNDERNEATH BREAST ARE HEALED, TX CONTINUE ON LEFT GROIN BUT RESPONDING WELL TO TX. CONT TO MONITOR.
[2020-01-07 06:47] LABS: BASOPHILS % (AUTO) 0.6 % (0.0-2.0); EOSINOPHILS # (AUTO) 0.1 K/uL (0.0-0.7); EOSINOPHILS % (AUTO) 2.1 % (0.0-7.0); HEMATOCRIT 27.4 % (31.2-41.9); HEMOGLOBIN 9.3 g/dL (10.9-14.3); LYMPHOCYTES # (AUTO) 2.2 K/uL (20.0-40.0); LYMPHOCYTES % (AUTO) 35.3 % (20.5-51.5); MEAN CORPUSCULAR HEMOGLOBIN 32.9 uug (24.7-32.8); MEAN CORPUSCULAR HGB CONC 34 g/dL (32.3-35.6); MEAN CORPUSCULAR VOLUME 97.1 fL (75.5-95.3); MONOCYTES # (AUTO) 0.7 K/uL (2.0-10.0); MONOCYTES % (AUTO) 11.6 % (0.0-11.0); NEUTROPHILS # (AUTO) 3.2 K/uL (1.8-8.9); NEUTROPHILS % (AUTO) 50.4 % (38.5-71.5); PLATELET COUNT (AUTO) 197 K/uL (179-408); RED BLOOD CELL COUNT(AUTO) 2.82 MIL/uL (3.63-4.92); WHITE BLOOD COUNT (AUTO) 6.3 K/uL (3.8-11.8)
[2020-01-07 06:50] LABS: CREATININE 0.8 mg/dL (0.6-1.3); MAGNESIUM 1.4 mg/dL (1.8-2.4); PHOSPHOROUS 2.7 mg/dL (2.5-4.9); POTASSIUM 4.5 mmol/L (3.5-5.1)
[2020-01-07 08:03] VITALS: BP 109/51
[2020-01-07] MEDS: INSULIN REGULAR, HUMAN 300 UNIT/3 ML VIAL SQ PRN ×4 (08:06→20:56)
[2020-01-07] MEDS: ASPIRIN 81 MG TAB.CHEW PO SCH (08:24)
[2020-01-07] MEDS: FLUTICASONE/VILANTEROL 1 EACH BLST.W.DEV INH SCH (08:24)
[2020-01-07] MEDS: CHOLECALCIFEROL 1,000 UNIT TABLET PO SCH (08:24)
[2020-01-07] MEDS: OMEGA-3 FATTY ACIDS/FISH OIL CAPSULE PO SCH (08:25)
[2020-01-07] MEDS: CITALOPRAM 20 MG TABLET PO SCH (08:25)
[2020-01-07] MEDS: FOLIC ACID 1 MG TABLET PO SCH (08:25)
[2020-01-07] MEDS: MUPIROCIN 2% OINT 22 GM TUBE NS SCH ×2 (08:26→20:54)
[2020-01-07] MEDS: Z GUARD REMEDY PASTE 57 GM TUBE TOP SCH ×2 (08:27→20:53)
[2020-01-07] MEDS: BACLOFEN 10 MG TABLET PO SCH ×2 (08:35→16:34)
[2020-01-07] MEDS: CARVEDILOL 3.125 MG TABLET PO SCH ×2 (08:35→16:33)
[2020-01-07] MEDS: DOCUSATE SODIUM 100 MG CAPSULE PO SCH (08:39)
[2020-01-07] MEDS: DIVALPROEX 125 MG TABLET.DR PO SCH (08:43)
[2020-01-07] MEDS: ONDANSETRON 4 MG/2 ML VIAL IV PRN ×2 (08:56→22:02)
[2020-01-07] MEDS: LACTULOSE 20 G/30 ML LIQUID UDC PO PRN ×2 (08:56→20:56)
[2020-01-07] MEDS ORDERED: METHOTREXATE SODIUM 2.5 MG TABLET PO SCH (09:00)
[2020-01-07] MEDS ORDERED: METHOTREXATE 10 MG SCH (09:00)
[2020-01-07 10:59] LABS: IRON, SERUM 43 ug/dL (50-175)
[2020-01-07] MEDS: MAGNESIUM SULFATE/D5W 100 ML IV SCH ×4 (11:05→16:30)
[2020-01-07 11:08] LABS: *BILIRUBIN,URIN NEGATIVE (NEGATIVE); *CLARITY,URINE CLEAR (CLEAR); *COLOR,URINE YELLOW (YELLOW); *KETONES,URINE NEGATIVE (NEGATIVE); *UROBILINOGEN,URINE 0.2 E.U./dl (NORMAL); LEUKOCYTE ESTERASE ,URINE TRACE (NEGATIVE); NITRITE, URINE NEGATIVE (NEGATIVE); PH,URINE 6.5 (5.0-8.0); UGLUCOSE NEGATIVE (NEGATIVE)
[2020-01-07 11:19] LABS: *BLOOD, URINE TRACE (NEGATIVE)
[2020-01-07 11:28] LABS: SQUAMOUS EPITHELIAL CELL,UR MODERATE /HPF (NONE SEEN)
[2020-01-07 11:29] LABS: MUCUS,URINE NONE SEEN /LPF (0-FEW); RBC,URINE 0-3 /HPF (0-3)
--- NOTE | 2020-01-07 13:20 | NUR ---
patient left for MRI WITH TECHNOLOGY INTERN
--- NOTE | 2020-01-07 15:29 | NUR ---
came back from MRI
[2020-01-07 15:40] VITALS: BP 101/71
[2020-01-07] MEDS: DIVALPROEX 250 MG TABLET.DR PO SCH (16:33)
--- NOTE | 2020-01-07 17:48 | NUR ---
PATIENT IS ALERT, ORIENTED X4, VERBALLY RESPONSIVE, NO SOB, RESP EVEN NONLABORED, SKIN WARM AND DRY TO TOUCH, LEFT LEG IN BRACE, PAIN IS MANAGED WITH PAIN MEDICATIONS AND WITH DISTRACTION, EXAMINED BY DR CAGE TODAY. PT EVAL PENDING, PATIENT WAS OUT OF MRI, PEDAL PULSE FOR LEFT FOOT IS STRONG, LEFT FOOT IS WARM AND PINK IN COLOR, SKIN UNDER BRACE IS INTACT, NO SKIN ISSUES NOTED.
--- NOTE | 2020-01-07 19:45 | NUR ---
Received patient awake and alert. Patient shows no signs or symptoms of distress at this time. Vital signs stable. Pt complains of having 8/10 pain in the left leg at this time. PRN medication to be given when due. Bed set to lowest position. Side rails X2 are up. Call light within reach. Will continue to monitor patient.
[2020-01-07 20:24] VITALS: BP 111/52
[2020-01-07] MEDS: ATORVASTATIN 40 MG TABLET PO SCH (20:52)
[2020-01-07] MEDS: DIVALPROEX 500 MG TABLET.DR PO SCH (20:52)
[2020-01-07] MEDS: QUETIAPINE FUMARATE 200 MG TABLET PO SCH (20:53)
[2020-01-07] MEDS: hydrOXYzine HCL 25 MG TABLET PO SCH (20:53)
--- NOTE | 2020-01-07 22:14 | NUR ---
Pt requesting medication for sleep. [facility] called and spoke to Dr. Albright. Received orders for Ambien. Telephone order placed. Will continue to monitor patient.
[2020-01-07] MEDS ORDERED: ZOLPIDEM 5 MG TABLET PO PRN (22:15)
[2020-01-08] MEDS: OXYCODONE/APAP 5-325 MG TABLET PO PRN ×3 (03:42→13:06)
[2020-01-08] MEDS: IV 1/2NS 1000 ML 1,000 ML IV PRN (03:43)
[2020-01-08 04:28] VITALS: BP 120/54
[2020-01-08] MEDS: BLOOD SUGAR DIAGNOSTIC 1 EACH STRIP VI SCH ×2 (06:30→12:10)
[2020-01-08] MEDS: PANTOPRAZOLE SODIUM 40 MG TABLET.DR PO SCH (06:31)
[2020-01-08] MEDS: LEVOTHYROXINE SODIUM 100 MCG TABLET PO SCH (06:31)
[2020-01-08 06:40] LABS: BASOPHILS % (AUTO) 0.6 % (0.0-2.0); EOSINOPHILS # (AUTO) 0.1 K/uL (0.0-0.7); HEMATOCRIT 28.2 % (31.2-41.9); HEMOGLOBIN 9.7 g/dL (10.9-14.3); LYMPHOCYTES # (AUTO) 2.5 K/uL (20.0-40.0); LYMPHOCYTES % (AUTO) 35.6 % (20.5-51.5); MEAN CORPUSCULAR HEMOGLOBIN 33.5 uug (24.7-32.8); MEAN CORPUSCULAR HGB CONC 34 g/dL (32.3-35.6); MEAN CORPUSCULAR VOLUME 97.9 fL (75.5-95.3); MONOCYTES # (AUTO) 0.7 K/uL (2.0-10.0); MONOCYTES % (AUTO) 9.6 % (0.0-11.0); NEUTROPHILS # (AUTO) 3.6 K/uL (1.8-8.9); NEUTROPHILS % (AUTO) 52.2 % (38.5-71.5); PLATELET COUNT (AUTO) 245 K/uL (179-408); RED BLOOD CELL COUNT(AUTO) 2.88 MIL/uL (3.63-4.92); WHITE BLOOD COUNT (AUTO) 6.9 K/uL (3.8-11.8)
[2020-01-08 06:51] LABS: CREATININE 0.9 mg/dL (0.6-1.3); MAGNESIUM 1.6 mg/dL (1.8-2.4); POTASSIUM 4.3 mmol/L (3.5-5.1)
--- NOTE | 2020-01-08 07:01 | NUR ---
Patient shows no signs or symptoms of distress at this time. Vital signs stable. Bed set to lowest position. Side rails x2 are up. Call light within reach. Will endorse patient to day shift nurse in stable condition.
--- NOTE | 2020-01-08 08:00 | NUR ---
received pt. resting in bed alert oriented x4. pt. states she has 8/10 pain in her L leg. Will give PRN pain medication during AM med pass. Pt. denies SOB/ difficulty breathing. IV in L upper arm 22 gauge intact patent running 1/2 NS at 40 cc/ hr. pt. on room air saturating well. safety measures in place. call light within reach. will continue to monitor pt.
[2020-01-08] MEDS: MUPIROCIN 2% OINT 22 GM TUBE NS SCH (08:12)
[2020-01-08] MEDS: FLUTICASONE/VILANTEROL 1 EACH BLST.W.DEV INH SCH (08:12)
[2020-01-08] MEDS: CHOLECALCIFEROL 1,000 UNIT TABLET PO SCH (08:13)
[2020-01-08] MEDS: OMEGA-3 FATTY ACIDS/FISH OIL CAPSULE PO SCH (08:13)
[2020-01-08] MEDS: Z GUARD REMEDY PASTE 57 GM TUBE TOP SCH (08:13)
[2020-01-08] MEDS: BACLOFEN 10 MG TABLET PO SCH (08:13)
[2020-01-08] MEDS: CITALOPRAM 20 MG TABLET PO SCH (08:13)
[2020-01-08] MEDS: FOLIC ACID 1 MG TABLET PO SCH (08:13)
[2020-01-08] MEDS: ASPIRIN 81 MG TAB.CHEW PO SCH (08:13)
[2020-01-08] MEDS: DOCUSATE SODIUM 100 MG CAPSULE PO SCH (08:13)
[2020-01-08] MEDS: DIVALPROEX 125 MG TABLET.DR PO SCH (08:13)
[2020-01-08] MEDS: CARVEDILOL 3.125 MG TABLET PO SCH (08:14)
[2020-01-08] MEDS: INSULIN REGULAR, HUMAN 300 UNIT/3 ML VIAL SQ PRN ×2 (08:19→12:14)
[2020-01-08] MEDS ORDERED: MAGNESIUM CHLORIDE 64 MG TABLET.SA PO SCH (09:00)
[2020-01-08] MEDS: LACTULOSE 20 G/30 ML LIQUID UDC PO PRN (13:06)
--- NOTE | 2020-01-08 15:54 | NUR ---
pt. discharged home to [facility]. IV removed. ID band removed. All photos taken. Belongings list signed and all belongings with pt. Pt. signed all paperwork. TMS by Dr. Albright given to pt. pt. wheeled downstairs by and sandy picked up by [facility] private car.
[2020-01-08 15:57] VITALS: BP 106/81
[2020-01-14] MEDS ORDERED: METHOTREXATE SODIUM 2.5 MG TABLET PO SCH (09:00)
== END 2020-01-08 15:50 | DRG 342 ==
LOC: ER 19:16 → MEDSURG3 22:36 → TELE3 01-03 12:45 → MEDSURG3 01-04 17:25
PROVIDERS: ADMIT Internal Medicine Nephrology; ATTEND Internal Medicine Nephrology
DX: S82.832A Other fracture of upper and lower end of left fibula, initial encounter for closed fracture (principal); N17.0 Acute kidney failure with tubular necrosis; E11.22 Type 2 diabetes mellitus with diabetic chronic kidney disease; E87.0 Hyperosmolality and hypernatremia; E83.39 Other disorders of phosphorus metabolism; E83.42 Hypomagnesemia; I13.0 Hypertensive heart and chronic kidney disease with heart failure and stage 1 through stage 4 chronic kidney disease, or unspecified chronic kidney disease; N39.0 Urinary tract infection, site not specified; W19.XXXA Unspecified fall, initial encounter; N18.9 Chronic kidney disease, unspecified; F17.210 Nicotine dependence, cigarettes, uncomplicated; E66.9 Obesity, unspecified; D63.8 Anemia in other chronic diseases classified elsewhere; B96.20 Unspecified Escherichia coli [E. coli] as the cause of diseases classified elsewhere; I25.10 Atherosclerotic heart disease of native coronary artery without angina pectoris; Z79.4 Long term (current) use of insulin; Z79.82 Long term (current) use of aspirin; Z87.440 Personal history of urinary (tract) infections; I25.2 Old myocardial infarction; Y93.9 Activity, unspecified; Y92.89 Other specified places as the place of occurrence of the external cause; Z68.41 Body mass index [BMI] 40.0-44.9, adult; F29 Unspecified psychosis not due to a substance or known physiological condition; Z22.322 Carrier or suspected carrier of Methicillin resistant Staphylococcus aureus; Z79.84 Long term (current) use of oral hypoglycemic drugs; I50.9 Heart failure, unspecified; Z99.3 Dependence on wheelchair
CPT/HCPCS: 36415; 70030-TC; 71045; 72170; 73030; 73502; 73610; 73721; 82652; 83550; 83690; 83735; 83970; 84100; 85025; 87086; 93005; 93307; 93880; A4663; G0378; J0696; J1815; J2405; J3475; J3490; J7030; J7060; J8610

== ENCOUNTER 2020-02-10 00:14 | Inpatient (IN) | payer OTHER ==
[~2020-02-10] VITALS: Ht 167.6 cm; Wt 108.1 kg
[~2020-02-10 00:14] MED LIST changes: +OXYC-133 PO
--- NOTE | 2020-02-10 00:48 | NUR ---
Patient arrived to unit via [facility], alert and oriented x3, patient easily arousable but continues to go to sleep during conversation, side rails padded and bed in lowest position for history of convulsions, complaints of pain in left ankle, left leg immobilizer removed per MD orders, states history of previous fracture in left ankle, IV [address] in left forearm, labs drawn, EKG at this time and MD aware of results, MD at beside for MSE
[2020-02-10 00:56] LABS: BASOPHILS # (AUTO) 0.1 K/uL (0.0-8.0); BASOPHILS % (AUTO) 0.9 % (0.0-2.0); EOSINOPHILS # (AUTO) 0.3 K/uL (0.0-0.7); EOSINOPHILS % (AUTO) 3.9 % (0.0-7.0); HEMATOCRIT 29.2 % (31.2-41.9); LYMPHOCYTES # (AUTO) 3.7 K/uL (20.0-40.0); LYMPHOCYTES % (AUTO) 42.2 % (20.5-51.5); MEAN CORPUSCULAR HEMOGLOBIN 33.9 uug (24.7-32.8); MEAN CORPUSCULAR HGB CONC 34 g/dL (32.3-35.6); MEAN CORPUSCULAR VOLUME 98.8 fL (75.5-95.3); MONOCYTES # (AUTO) 0.6 K/uL (2.0-10.0); MONOCYTES % (AUTO) 6.7 % (0.0-11.0); NEUTROPHILS % (AUTO) 46.3 % (38.5-71.5); PLATELET COUNT (AUTO) 127 K/uL (179-408); RED BLOOD CELL COUNT(AUTO) 2.96 MIL/uL (3.63-4.92); WHITE BLOOD COUNT (AUTO) 8.7 K/uL (3.8-11.8)
[2020-02-10 01:06] LABS: CREATININE 1.6 mg/dL (0.6-1.3); POTASSIUM 3.5 mmol/L (3.5-5.1)
[2020-02-10 01:21] LABS: BILIRUBIN,DIRECT 0.2 mg/dL (0.0-0.2); BILIRUBIN,TOTAL 0.4 mg/dL (0.2-1.0); TOTAL PROTEIN, SERUM 5.6 g/dL (6.4-8.2)
[2020-02-10 01:37] LABS: ABG BASE EXCESS 2.5 mmol/L; ABG HCO3 28.1 mmol/L; ABG PCO2 48.2 mmHg (35.0-45.0); ABG PH 7.384 (7.350-7.450); ABG PO2 145.8 mmHg (75.0-100.0); ABG SITE LEFT RADIAL; ABG TOTAL HEMOGLOBIN 10.3 G/dL (12.0-16.0); MetHb 0.1 % (0.0-1.5); O2Hb 93.6 % (94.0-97.0); VENT MODE Nasal Cannula
--- NOTE | 2020-02-10 01:57 | NUR ---
Patient arrived from CT at this time
--- NOTE | 2020-02-10 02:28 | NUR ---
urine collected via in and out catheterization and sent to lab at this time
[2020-02-10 02:45] LABS: *BILIRUBIN,URIN NEGATIVE (NEGATIVE); *BLOOD, URINE NEGATIVE (NEGATIVE); *CLARITY,URINE CLEAR (CLEAR); *COLOR,URINE YELLOW (YELLOW); *KETONES,URINE NEGATIVE (NEGATIVE); LEUKOCYTE ESTERASE ,URINE NEGATIVE (NEGATIVE); NITRITE, URINE NEGATIVE (NEGATIVE); PH,URINE 5.5 (5.0-8.0); UGLUCOSE NEGATIVE (NEGATIVE)
[2020-02-10] MEDS ORDERED: IV NORMAL SALINE 1000 ML BAG IV ONE ×2 (03:00→03:45)
[2020-02-10] MEDS ORDERED: PIPERACILLIN SODIUM/TAZOBACTAM 3.375 G in IV DEXTROSE 5% 50 ML IV ONE (03:45)
[2020-02-10] MEDS ORDERED: PIPERACILLIN/TAZOBACTAM/D5W 50 ML IV ONE (04:00)
--- NOTE | 2020-02-10 05:15 | NUR ---
Picked up patient from CCU awake alert and oriented in wheelchair. Patient now comfortably having dinner in bed. No signs of respiratory distress noted. Patient is saturating well on 2L of oxygen. IV intact and patent on right forearm running NS with potassium at 70 cc per hour. Safety precautions in place, bed locked and in the lowest position with call light and belongings within reach. Will continue to observe and monitor. Addendum: 02/10/20 at 1813 by JOVANNI ONEAL RN Time patient was picked up was at 1715 and not 1515
--- NOTE | 2020-02-10 05:25 | NUR ---
Pt. admitted to CCU , under care of Dr. Racheal Russ List completed, patient transported in stable condition
[2020-02-10 05:47] VITALS: BP 115/61
--- NOTE | 2020-02-10 05:47 | NUR ---
ADMITTED FROM ER [facility]IA [facility] W/ ADM. DX OF SEIZURE. PT IS VERBALLY RESPONSIVE & COHERENT, TOO SLEEPY. HEP LOCK INTACT ON LFA #20. C-SCOPE SR. BP STABLE. ON 100% NRM W/ O2 SAT OF 100%.
[2020-02-10 08:00] VITALS: BP 106/51
[2020-02-10] MEDS ORDERED: OXYCODONE/APAP 5-325 MG TABLET PO PRN (09:15)
[2020-02-10] MEDS ORDERED: ACETAMINOPHEN 325 MG TABLET PO PRN (09:15)
[2020-02-10] MEDS ORDERED: IBUPROFEN 600 MG TABLET PO PRN (09:15)
[2020-02-10] MEDS ORDERED: CARVEDILOL 3.125 MG TABLET PO SCH (09:15)
[2020-02-10] MEDS ORDERED: DIVALPROEX 125 MG TABLET.DR PO SCH (09:15)
[2020-02-10] MEDS: LOSARTAN POTASSIUM 50 MG TABLET PO SCH (09:30)
[2020-02-10] MEDS: DOCUSATE SODIUM 100 MG CAPSULE PO SCH (09:33)
[2020-02-10] MEDS: FOLIC ACID 1 MG TABLET PO SCH (09:33)
[2020-02-10] MEDS: LACTULOSE 20 G/30 ML LIQUID UDC PO SCH ×2 (09:33→18:03)
[2020-02-10] MEDS: FUROSEMIDE 20 MG TABLET PO SCH (09:33)
[2020-02-10] MEDS: ASPIRIN 81 MG TAB.CHEW PO SCH (09:33)
[2020-02-10] MEDS: PANTOPRAZOLE SODIUM 40 MG TABLET.DR PO SCH (09:34)
[2020-02-10] MEDS: BACLOFEN 10 MG TABLET PO SCH ×2 (09:51→18:03)
[2020-02-10] MEDS: ATORVASTATIN 40 MG TABLET PO SCH ×2 (09:52→20:48)
--- NOTE | 2020-02-10 10:00 | NUR ---
Attending physician Dr. Poole in the unit to see and examine patient, full report given see order hx.
[2020-02-10] MEDS ORDERED: NICOTINE 21 MG/24HR PATCH TD SCH (10:30)
[2020-02-10] MEDS ORDERED: DEXTROSE 50% 50 ML DISP.SYRIN IV PRN (10:30)
[2020-02-10] MEDS ORDERED: INSULIN REGULAR, HUMAN 300 UNIT/3 ML VIAL SQ PRN (10:30)
[2020-02-10] MEDS ORDERED: ALBUTEROL SULFATE 2.5 MG/3 ML NEBU NEB PRN (10:30)
--- NOTE | 2020-02-10 11:00 | NUR ---
With I&O catheter a total of 1200 cc urine obtained. Md called to be notified of need of tee catheter.
[2020-02-10] MEDS ORDERED: BLOOD SUGAR DIAGNOSTIC 1 EACH STRIP VI SCH (11:30)
[2020-02-10 12:00] VITALS: BP 113/73
[2020-02-10] MEDS ORDERED: levETIRAcetam 500 MG TABLET PO SCH (14:00)
[2020-02-10 14:09] LABS: *BILIRUBIN,URIN NEGATIVE (NEGATIVE); *BLOOD, URINE NEGATIVE (NEGATIVE); *CLARITY,URINE CLEAR (CLEAR); *COLOR,URINE YELLOW (YELLOW); *KETONES,URINE NEGATIVE (NEGATIVE); *UROBILINOGEN,URINE 0.2 E.U./dl (NORMAL); LEUKOCYTE ESTERASE ,URINE NEGATIVE (NEGATIVE); NITRITE, URINE NEGATIVE (NEGATIVE); UGLUCOSE NEGATIVE (NEGATIVE)
[2020-02-10] MEDS: POTASSIUM CHLORIDE 20 MEQ in IV NS 1000 ML 1,000 ML IV PRN (14:48)
[2020-02-10 14:59] LABS: *CREATININE,URINE 17.9 mg/dL (30-125); *URINE TOTAL PROTEIN RANDOM 6.4 mg/dL (<150/24HR)
[2020-02-10] MEDS ORDERED: DIVALPROEX 250 MG TABLET.DR PO SCH (17:00)
--- NOTE | 2020-02-10 17:17 | NUR ---
patient pick upto room 306 transported via wheelchair. Telephone report given to Max Jimenez at 1600 pt's vitals stable no complains of pain. tee to gravity and emptied before transfer.
--- NOTE | 2020-02-10 17:45 | NUR ---
PATIENT RECEIVED BY W/CHAIR FROM CCU TO ROOM 308 PLACED INTO BED FIXED AND MADE COMFORTABLE PATIENT IS ALERT AND ORIENTED ON O2 AT 2L/M BY NASAL CANULA WITH NO SOB AT THIS TIME RESTARTED HER IVF ORDERED WITH NO S/S OF INFILTERATION ON SITE TELE MONITORING IN PROGRESS AND SR WITH NO ECTOPY AT THIS TIME.SHE HAS A AN INDWELLING NI CATH TO CLEAR YELLOW URINE PATIENT ORIENTED TO ROOM AND FACILITY PROTOCOL MADE COMFORTABLE AND WILL CONTINUE TO OBSERVE.
[2020-02-10 17:55] VITALS: BP 93/57
[2020-02-10] MEDS ORDERED: METFORMIN HCL 500 MG TABLET PO SCH (18:00)
--- NOTE | 2020-02-10 18:07 | NUR ---
DR OVERTON NEUROLOGIST HERE TO SEE PATIENT WITH NEW ORDERS AND NOTED
[2020-02-10] MEDS: DIVALPROEX 500 MG TABLET.DR PO SCH (18:37)
--- NOTE | 2020-02-10 19:09 | NUR ---
PATIENT IS RESTING COMFORTABLY IN BED. NO SIGNS OF RESPIRATORY DISTRESS AT THIS TIME. PATIENT IS SATURATING WELL ON 2L OF OXYGEN. SAFETY PRECAUTIONS IN PLACE, BED IN LOWEST POSITION AND IN LOCKED POSITION WITH CALL LIGHT AND BELONGINGS IN REACH. WILL ENDORSE THE PATIENT TO THE ONCOMING NURSE
[2020-02-10 20:01] VITALS: BP 120/60
[2020-02-10] MEDS: hydrOXYzine HCL 25 MG TABLET PO SCH (20:47)
[2020-02-10] MEDS: LEVOTHYROXINE SODIUM 100 MCG TABLET PO SCH (20:48)
[2020-02-10] MEDS: QUETIAPINE FUMARATE 200 MG TABLET PO SCH (20:49)
[2020-02-10] MEDS: Z GUARD REMEDY PASTE 57 GM TUBE TOP SCH (20:49)
[2020-02-10] MEDS: NYSTATIN POWDER 15 GM BOTTLE TOP SCH (20:49)
[2020-02-10] MEDS ORDERED: DIVALPROEX 500 MG TABLET.DR PO SCH (21:00)
[2020-02-11 00:25] VITALS: BP 108/54
[2020-02-11] MEDS: TEMAZEPAM 15 MG CAPSULE PO PRN ×2 (00:29→22:25)
[2020-02-11] MEDS: POTASSIUM CHLORIDE 20 MEQ in IV NS 1000 ML 1,000 ML IV PRN ×2 (03:44→22:25)
[2020-02-11 04:00] VITALS: BP 110/78
--- NOTE | 2020-02-11 05:02 | NUR ---
PATIENT RECEIVED LYING IN BED. AAOX3. VERBAL AND ABLE TO VERBALIZE NEEDS. NO S/S OF ACUTE DISTRESS. V/S STABLE. AFEBRILE AFTER RECHECKING SECOND TIME OF YACHT BUILDER GIVING ME REPORT FOR LOW GRADE FEVER AT BEGINNING OF SHIFT. SEIZURE PRECAUTIONS PROVIDED. DR. LEAL CONTACTED FOR SLEEPING MEDICATION ORDER REQUESTED BY PATIENT DUE TO INSOMNIA DESPITE SEROQUEL. TEMAZEPAM 15MG PO QHS PRN ORDERED. ADMINISTERED AND TOLERATED WELL. SAFETY MEASURES IN PLACE. CALL LIGHT WITHIN REACH. WILL CONTINUE TO ASSESS AND MONITOR PATIENT.
[2020-02-11 06:06] LABS: BASOPHILS % (AUTO) 0.6 % (0.0-2.0); EOSINOPHILS # (AUTO) 0.2 K/uL (0.0-0.7); HEMATOCRIT 28.8 % (31.2-41.9); HEMOGLOBIN 9.9 g/dL (10.9-14.3); LYMPHOCYTES # (AUTO) 1.9 K/uL (20.0-40.0); LYMPHOCYTES % (AUTO) 31.1 % (20.5-51.5); MEAN CORPUSCULAR HEMOGLOBIN 34.1 uug (24.7-32.8); MEAN CORPUSCULAR HGB CONC 34 g/dL (32.3-35.6); MEAN CORPUSCULAR VOLUME 99.1 fL (75.5-95.3); MONOCYTES # (AUTO) 0.6 K/uL (2.0-10.0); MONOCYTES % (AUTO) 9.2 % (0.0-11.0); NEUTROPHILS # (AUTO) 3.4 K/uL (1.8-8.9); NEUTROPHILS % (AUTO) 55.1 % (38.5-71.5); PLATELET COUNT (AUTO) 120 K/uL (179-408); WHITE BLOOD COUNT (AUTO) 6.2 K/uL (3.8-11.8)
[2020-02-11 06:40] LABS: THYROID STIMULATING HORMONE 5.249 mIU/mL (0.358-3.740)
[2020-02-11 06:47] LABS: BILIRUBIN,TOTAL 0.3 mg/dL (0.2-1.0); PHOSPHOROUS 3.3 mg/dL (2.5-4.9); POTASSIUM 3.9 mmol/L (3.5-5.1); TOTAL PROTEIN, SERUM 5.2 g/dL (6.4-8.2)
[2020-02-11 07:12] LABS: MAGNESIUM 1.2 mg/dL (1.8-2.4)
--- NOTE | 2020-02-11 07:45 | NUR ---
Received patient lying in bed, awake, alert and oriented. She shows no sign of respiratory distress at this time and is saturating well on 2L of oxygen nasal cannula. The patient IV is on the left forearm 20 gauge running 70 cc of KCL. The IV is intact and patent. All safety precautions are implemented bed in the lowest position and locked with patients belongings and call light within reach. Will continue to observe and monitor.
[2020-02-11] MEDS: CHOLECALCIFEROL 1,000 UNIT TABLET PO SCH (08:14)
[2020-02-11] MEDS: PANTOPRAZOLE SODIUM 40 MG TABLET.DR PO SCH (08:14)
[2020-02-11] MEDS: BACLOFEN 10 MG TABLET PO SCH ×2 (08:14→17:24)
[2020-02-11] MEDS: LACTULOSE 20 G/30 ML LIQUID UDC PO SCH ×2 (08:14→17:24)
[2020-02-11] MEDS: DOCUSATE SODIUM 100 MG CAPSULE PO SCH (08:15)
[2020-02-11] MEDS: FOLIC ACID 1 MG TABLET PO SCH (08:15)
[2020-02-11] MEDS: DIVALPROEX 250 MG TABLET.DR PO SCH (08:15)
[2020-02-11] MEDS: FUROSEMIDE 20 MG TABLET PO SCH (08:15)
[2020-02-11] MEDS: ASPIRIN 81 MG TAB.CHEW PO SCH (08:15)
[2020-02-11] MEDS: Z GUARD REMEDY PASTE 57 GM TUBE TOP SCH ×2 (08:16→21:26)
[2020-02-11] MEDS: CITALOPRAM 20 MG TABLET PO SCH (08:17)
[2020-02-11] MEDS: NYSTATIN POWDER 15 GM BOTTLE TOP SCH ×2 (08:17→21:24)
[2020-02-11] MEDS: NICOTINE 21 MG/24HR PATCH TD SCH (08:17)
[2020-02-11] MEDS: LOSARTAN POTASSIUM 50 MG TABLET PO SCH (08:25)
[2020-02-11] MEDS ORDERED: DIVALPROEX 250 MG TABLET.DR PO SCH (09:00)
[2020-02-11] MEDS ORDERED: NICOTINE 14 MG/24HR PATCH TD SCH (09:00)
[2020-02-11] MEDS ORDERED: METHOTREXATE SODIUM 2.5 MG TABLET PO SCH (09:00)
[2020-02-11] MEDS: MAGNESIUM SULFATE/D5W 100 ML IV SCH ×4 (10:19→14:16)
[2020-02-11 11:47] VITALS: BP 92/40
[2020-02-11 15:57] VITALS: BP 102/51
[2020-02-11] MEDS: DIVALPROEX 500 MG TABLET.DR PO SCH (17:24)
--- NOTE | 2020-02-11 20:00 | NUR ---
Received patient awake and alert in bed, A/Ox3. No signs of acute distress noted. No complaints of pain other than saying she has canker sores and has been asking for some treatment for that, will f/u with . No SOB. Vitals WNL. patient removed O2 and is saturating at 95% RA. NSR on the monitor in the 80s. IVF running on the left forearm, no s/s of infiltration or infection noted. [place] is intact and draining well. Seizure precautions initiated. Safety measures initiated. Bed is low and locked, call light within reach. Will continue to monitor.
[2020-02-11 20:09] VITALS: BP 119/53
[2020-02-11] MEDS: LEVOTHYROXINE SODIUM 100 MCG TABLET PO SCH (21:25)
[2020-02-11] MEDS: hydrOXYzine HCL 25 MG TABLET PO SCH (21:25)
[2020-02-11] MEDS: QUETIAPINE FUMARATE 200 MG TABLET PO SCH (21:25)
[2020-02-12 00:03] VITALS: BP 125/62
[2020-02-12 04:09] VITALS: BP 120/72
--- NOTE | 2020-02-12 08:00 | NUR ---
RESTING COMFORTABLY IN BED NO SS OF PAIN OR SOB, NO SS OF SEIZURE. SR ON MONITOR
[2020-02-12] MEDS: CHOLECALCIFEROL 1,000 UNIT TABLET PO SCH (08:50)
[2020-02-12] MEDS: LACTULOSE 20 G/30 ML LIQUID UDC PO SCH ×2 (08:50→17:09)
[2020-02-12] MEDS: DIVALPROEX 250 MG TABLET.DR PO SCH (08:50)
[2020-02-12] MEDS: PANTOPRAZOLE SODIUM 40 MG TABLET.DR PO SCH (08:50)
[2020-02-12] MEDS: ASPIRIN 81 MG TAB.CHEW PO SCH (08:50)
[2020-02-12] MEDS: CITALOPRAM 20 MG TABLET PO SCH (08:50)
[2020-02-12] MEDS: FOLIC ACID 1 MG TABLET PO SCH (08:50)
[2020-02-12] MEDS: BACLOFEN 10 MG TABLET PO SCH ×2 (08:51→17:09)
[2020-02-12] MEDS: Z GUARD REMEDY PASTE 57 GM TUBE TOP SCH ×2 (08:53→21:03)
[2020-02-12] MEDS: MUPIROCIN 2% OINT 22 GM TUBE NS SCH ×2 (09:01→21:03)
[2020-02-12] MEDS: DOCUSATE SODIUM 100 MG CAPSULE PO SCH (09:01)
[2020-02-12] MEDS: NICOTINE 21 MG/24HR PATCH TD SCH (09:36)
[2020-02-12] MEDS: NYSTATIN POWDER 15 GM BOTTLE TOP SCH ×2 (09:36→21:03)
--- NOTE | 2020-02-12 10:00 | NUR ---
SEEN BY PT/OT FOR FOLLOW-UP SEE NOTES
[2020-02-12 12:00] VITALS: BP 115/55
[2020-02-12 13:14] LABS: ALBUMIN 2.3 g/dL (2.9-4.4); ALPHA-1-GLOBULIN 0.2 g/dL (0.0-0.4); ALPHA-2-GLOBULIN 0.7 g/dL (0.4-1.0); BETA GLOBULIN 0.8 g/dL (0.7-1.3); GAMMA GLOBULIN 0.7 g/dL (0.4-1.8); GLOBULIN, TOTAL 2.4 g/dL (2.2-3.9); M-SPIKE Not Observed g/dL (Not Observed)
[2020-02-12] MEDS: POTASSIUM CHLORIDE 20 MEQ in IV NS 1000 ML 1,000 ML IV PRN (13:18)
[2020-02-12 16:00] VITALS: BP 101/50
[2020-02-12] MEDS: DIVALPROEX 500 MG TABLET.DR PO SCH (17:09)
--- NOTE | 2020-02-12 19:45 | NUR ---
Received patient calm and lying in bed with HOB in high fowlers. No signs or symptoms of acute distress. Patient denies pain or SOB. skein winder on. Left wrist IV patent and intact. Bed low and locked. Side rails padded. Safety measures initiated and will continue to monitor.
[2020-02-12 20:00] VITALS: BP 105/46
[2020-02-12] MEDS: QUETIAPINE FUMARATE 200 MG TABLET PO SCH (21:01)
[2020-02-12] MEDS: LEVOTHYROXINE SODIUM 100 MCG TABLET PO SCH (21:01)
[2020-02-12] MEDS: hydrOXYzine HCL 25 MG TABLET PO SCH (21:02)
[2020-02-12] MEDS: TEMAZEPAM 15 MG CAPSULE PO PRN (22:10)
[2020-02-13 00:30] VITALS: BP 101/59
[2020-02-13] MEDS: POTASSIUM CHLORIDE 20 MEQ in IV NS 1000 ML 1,000 ML IV PRN (03:37)
[2020-02-13 04:34] VITALS: BP 94/45
--- NOTE | 2020-02-13 06:15 | NUR ---
Patient slept well throughout night. Patient BP this morning was 94/45, patient is asymptomatic. Patient is alert and oriented, no complaints of dizziness. IVF running on the left forearm, no s/s of infection or infiltration noted. Stool x1 brought to lab for Stool OB. Seizure precautions maintained, no seizure activity noted. Medications given as ordered. Safety measures maintained. Will endorse to next shift.
--- NOTE | 2020-02-13 08:00 | NUR ---
received pt. resting in bed alert oriented x4. IV in L forearm 20 gauge intact patent running prescribed fluid. pt. on room air saturating well. pt. denies pain / discomfort. pt. denies sob/ difficulty breathing. tee catheter in place for retention draining clear yellow urine. safety measures in place. call light within reach. will continue to monitor pt.
[2020-02-13] MEDS: LACTULOSE 20 G/30 ML LIQUID UDC PO SCH (08:18)
[2020-02-13] MEDS: NICOTINE 21 MG/24HR PATCH TD SCH (08:18)
[2020-02-13] MEDS: CITALOPRAM 20 MG TABLET PO SCH (08:19)
[2020-02-13] MEDS: DIVALPROEX 250 MG TABLET.DR PO SCH (08:19)
[2020-02-13] MEDS: ASPIRIN 81 MG TAB.CHEW PO SCH (08:19)
[2020-02-13] MEDS: CHOLECALCIFEROL 1,000 UNIT TABLET PO SCH (08:19)
[2020-02-13] MEDS: PANTOPRAZOLE SODIUM 40 MG TABLET.DR PO SCH (08:20)
[2020-02-13] MEDS: BACLOFEN 10 MG TABLET PO SCH (08:20)
[2020-02-13] MEDS: DOCUSATE SODIUM 100 MG CAPSULE PO SCH (08:20)
[2020-02-13] MEDS: FOLIC ACID 1 MG TABLET PO SCH (08:20)
[2020-02-13] MEDS: Z GUARD REMEDY PASTE 57 GM TUBE TOP SCH (08:21)
[2020-02-13] MEDS: MUPIROCIN 2% OINT 22 GM TUBE NS SCH (08:21)
[2020-02-13] MEDS: NYSTATIN POWDER 15 GM BOTTLE TOP SCH (08:22)
[2020-02-13 11:37] VITALS: BP 113/42
--- NOTE | 2020-02-13 14:49 | NUR ---
pt. discharged back to [facility] living. IV removed. ID band removed. all paperwork signed. all belongings with pt. photos taken in chart. tee catheter removed. pt. able to urinate without tee. pt. stable vital signs within normal limits. picked up with jed.
== END 2020-02-13 14:45 | DRG 53 ==
LOC: ER 00:18 → CCU 05:35 → TELE3 17:15
PROVIDERS: ADMIT Internal Medicine; ATTEND Internal Medicine
DX: R56.9 Unspecified convulsions (principal); F17.210 Nicotine dependence, cigarettes, uncomplicated; E43 Unspecified severe protein-calorie malnutrition; Z68.39 Body mass index [BMI] 39.0-39.9, adult; E66.01 Morbid (severe) obesity due to excess calories; N17.0 Acute kidney failure with tubular necrosis; D68.69 Other thrombophilia; D69.6 Thrombocytopenia, unspecified; E03.9 Hypothyroidism, unspecified; E78.5 Hyperlipidemia, unspecified; E11.9 Type 2 diabetes mellitus without complications; G89.29 Other chronic pain; J44.1 Chronic obstructive pulmonary disease with (acute) exacerbation; I50.9 Heart failure, unspecified; I11.0 Hypertensive heart disease with heart failure; D53.9 Nutritional anemia, unspecified; F32.9 Major depressive disorder, single episode, unspecified; I25.10 Atherosclerotic heart disease of native coronary artery without angina pectoris; Z79.82 Long term (current) use of aspirin; Z79.84 Long term (current) use of oral hypoglycemic drugs; J96.91 Respiratory failure, unspecified with hypoxia; Z71.6 Tobacco abuse counseling
CPT/HCPCS: 36415; 36600; 70030-TC; 70450; 71045; 73610; 80164; 82533; 83550; 83605; 83735; 83970; 84100; 84155; 84156; 84165; 84300; 84443; 85025; 85730; 86592; 87040; 87086; 93005; 95819; A4663; C1758; G0378; J1815; J2543; J3475; J3480; J3490; J7030; J7060; J8610; U0003-CS